=== PATIENT | male | born 1970 | race Caucasian/White ===

== ENCOUNTER 2016-04-18 07:21 | Outpatient (CLI) | payer SELFPAY | END 2016-04-18 07:22 | disposition home or self-care (01) | DX: R73.02 Impaired glucose tolerance (oral) (principal); E78.5 Hyperlipidemia, unspecified; E03.9 Hypothyroidism, unspecified ==

== ENCOUNTER 2020-03-28 06:49 | Outpatient (CLI) | payer OTHER ==
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
== END 2020-03-28 06:50 | disposition home or self-care (01) ==
LOC: EMS 06:49
PROVIDERS: ATTEND Surgery
DX: Z04.1 Encounter for examination and observation following transport accident (principal); R59.1 Generalized enlarged lymph nodes

== ENCOUNTER 2020-03-28 07:55 | Emergency (ER) | payer OTHER ==
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
[2020-03-28] MEDS ORDERED: IBUPROFEN 600 MG TABLET PO STA (10:36)
[2020-03-28] MEDS ORDERED: ACETAMINOPHEN 325 MG TABLET PO STA (10:36)
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
[2020-03-28 11:04] VITALS: BP 160/91
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
== END 2020-03-28 11:38 | disposition home or self-care (01) ==
LOC: ED 07:55
DX: S00.03XA Contusion of scalp, initial encounter (principal); S20.212A Contusion of left front wall of thorax, initial encounter; V43.52XA Car driver injured in collision with other type car in traffic accident, initial encounter; W22.11XA Striking against or struck by driver side automobile airbag, initial encounter; Y92.410 Unspecified street and highway as the place of occurrence of the external cause
CPT/HCPCS: 70450; 71046; 99284; A9270

== ENCOUNTER 2022-11-26 09:17 | Emergency (ER) | payer OTHER ==
--- NOTE | 2022-11-26 09:57 | ED Physician Documentation ---
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 The wall fell toward patient and the end of a 2x4 struck him at right cheek/orbital area. No LOC. Pain right face, with swelling around eye and some blurred vision but not loss of vision.) Where head injury occurred: Work Timing - onset: Today Location of injury: Right, Front (cheek and periorbital area) Quality of pain: Pain, Aching Associated symptoms: No: LOC, AMS, Nausea / vomiting, Neck pain Symptoms worsen with: Palpation, Movement (eye movement hurts cheek.) Contributing factors: No: Anticoagulated, Intoxicated Similar symptoms before: Has not had sx before Recently seen: Not recently seen Review of Systems Eyes: reports: Decreased vision. denies: Loss of vision GI: denies: Nausea, Vomiting Skin: denies: Abrasion (s), Laceration (s) Musculoskeletal: denies: Neck pain, Back pain Neurologic: reports: Headache (right frontal). denies: Focal weakness, Numbness, Difficulty speaking, Altered mental status, LOC PD PAST MEDICAL HISTORY - Past Medical History Cardiovascular: None Respiratory: None Neuro: None Endocrine/Autoimmune: None GI: None : None HEENT: None Psych: None Musculoskeletal: None Derm: None - Past Surgical History Past Surgical History: No - Allergies Allergies/Adverse Reactions: Allergies Allergy/AdvReac Type Severity Reaction Status Date / Time No Known Drug Allergies Allergy Verified 03/28/20 08:10 - Social History Does the pt smoke?: No Smoking Status: Never smoker Does the pt drink ETOH?: No Does the pt have substance abuse?: No - Immunizations Immunizations are current?: Yes - POLST Patient has POLST: No PD ED PE NORMAL - Vitals Vital signs reviewed: Yes (BP elevated but he says is usually within normal. ) - General General: Alert and oriented X 3, No acute distress, Well developed/nourished - HEENT HEENT: PERRL, EOMI (he says there is right cheek and face pain with EOMs, but not hurting behind eye and no diplopia. ), Dentition benign, Other (right cheek and lower lid with swelling. Slightly sunken appearance of zygomatic arch. Normal sensation of upper lip and gums. 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 Eye not dilated. ) Results - Vitals Vitals: Vital Signs - 24 hr 11/26/22 11/26/22 09:25 13:33 Temperature 36.3 C L Heart Rate 51 L 52 L Respiratory 18 17 Rate Blood Pressure 203/92 H 199/88 H O2 Saturation 100 98 Oxygen O2 Source Room air - Rads (name of study) head CT Relevant Findings:: Prelim report reviewed, EMP independent interpretation of test (no ICH nor calvarial fractures.) facial CT Relevant Findings:: Prelim report reviewed (fratures of lateral orbital wall, zygomatic arch and mandible. ), EMP independent interpretation of test PD Medical Decision Making - ED course Complexity details: reviewed results, considered differential, d/w patient (patient declined pain meds. We will get CT face and head. No other injury. ), d/w eap consultant (Ramon Booker, maxilofacial surgeon, was in office and asked that patient be sent up to see him with CT disc. Pt agreeable to do this and has ride. ) Departure - Departure Disposition: 01 Home, Self Care Clinical Impression: Facial fracture, Work related injury, Blurred vision Condition: Stable Record reviewed to determine appropriate education?: Yes Follow-Up: Ramon Booker DDS [Provider Admit Priv/Credential] - Jack Foley MD [Provider Admit Priv/Credential] - Comments: I talked with Dr. Booker who said he would be able to see you in the office actually this afternoon. We are making a digital disc of your CT imaging. Please bring that with you to his office. I also provided the name of a eyeglass lens grinder. Call their office as well for a follow-up in the next day or 2. Forms: PCP List Discharge Date/Time: 11/26/22 13:34
[2022-11-26] MEDS ORDERED: KETOROLAC 15 MG/ML VIAL IVP STA (11:27)
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
[2022-11-26 13:40] VITALS: BP 199/88; O2SAT 98
== END 2022-11-26 13:34 | disposition home or self-care (01) ==
LOC: ED 09:17
DX: S02.849A Fracture of lateral orbital wall, unspecified side, initial encounter for closed fracture (principal); S02.402A Zygomatic fracture, unspecified side, initial encounter for closed fracture; S02.609A Fracture of mandible, unspecified, initial encounter for closed fracture; H53.8 Other visual disturbances; W20.8XXA Other cause of strike by thrown, projected or falling object, initial encounter; Y93.89 Activity, other specified; Y99.0 Civilian activity done for income or pay
CPT/HCPCS: 1040M; 70450; 70486; 99284